=== PATIENT | male | born 1995 | race Native Hawaiian/Other Pacific Islander ===

== ENCOUNTER 2020-08-22 09:15 | Emergency (ER) | payer OTHER ==
[~2020-08-22] VITALS: Ht 175.3 cm; Wt 113.4 kg
[2020-08-22 09:32] VITALS: TEMP 98.7
[2020-08-22 10:40] LABS: PLATELET COUNT 243 K/uL (142-355)
[2020-08-22 10:57] LABS: POTASSIUM 3.6 mmol/L (3.6-5.2)
[2020-08-22 13:35] VITALS: BP 124/79
== END 2020-08-22 13:35 | disposition home or self-care (01) ==
LOC: ED 09:15
PROVIDERS: Family Medicine
DX: K29.60 Other gastritis without bleeding (principal); R43.2 Parageusia; R11.2 Nausea with vomiting, unspecified; Z20.828 Contact with and (suspected) exposure to other viral communicable diseases
CPT/HCPCS: 80053; 81000; 82150; 82728; 83690; 85027; 85379; 87502; 87635; 87651; 96360; 96375; 99284; J2405; J3490; U0003